=== PATIENT | male | born 1950 | race Caucasian/White ===

== ENCOUNTER 2021-10-31 09:24 | Emergency (ER) | payer OTHER ==
[2021-10-31 10:56] LABS: Hemoglobin 10.7 g/dL (13.5-17.5); Mean Corpuscular HGB CONC 31.2 g/dL (32.0-36.0); Mean Corpuscular Hemoglobin 27.1 pg (27.0-33.0); Mean Corpuscular Volume 86.8 fl (81.2-95.1); Mean Platelet Volume 10.5 fl (7.4-10.4); Platelet Count 921 10x3/uL (150-450); RBC Distribution Width 15.3 % (11.5-14.5); Red Blood Cell (RBC) Count 3.95 10x6/uL (4.32-5.72); White Blood Cell (WBC) Count 6.8 10x3/uL (3.5-10.5)
[2021-10-31 11:03] LABS: MDiff Complete? YES
[2021-10-31 11:21] LABS: Band 1 % (5-11); Lymphocytes 77 % (21-51); Monocytes 5 % (0-10); Neutrophil 6 % (42-75); Nucleated RBC 8 % (0); Reactive Lymphocytes 9 % (0-10)
[2021-10-31 11:24] LABS: ALT (SGPT) 20 U/L (8-55); AST (SGOT) 18 U/L (5-34); Albumin 3.9 g/dL (3.4-4.8); Alkaline Phosphatase 49 U/L (40-110); Anion Gap 14 mmol/L (10-20); BUN (Urea Nitrogen) 13 mg/dL (8.4-25.7); Bilirubin, Total 0.7 mg/dL (0.2-1.2); CK (CPK) 35 U/L (30-200); Calc. Creatinine Clearance 0 mL/min (70-130); Calcium 9.4 mg/dL (7.8-10.44); Carbon Dioxide 24 mmol/L (23-31); Chloride 101 mmol/L (98-107); Estimated GFR 82; Globulin 2.8 g/dL (2.4-3.5); Glucose 93 mg/dL (80-115); Lipase 34 U/L (8-78); Potassium 3.9 mmol/L (3.5-5.1); Protein, Total 6.7 g/dL (5.8-8.1); Sodium 135 mmol/L (136-145)
[2021-10-31 11:33] LABS: Giant Platelets SLIGHT; Large Platelets SLIGHT; Platelet Morphology Comment Appears Increased
[2021-10-31 11:36] LABS: Reflex for Review?? YES
[2021-10-31 11:42] LABS: Differential Comment Blast-Like Cell(s); Hypochromia SLIGHT = 6-15 cells (100X) (0-5/hpf); Polychromasia SLIGHT = 2-3 cells (100X) (0-2/hpf)
[2021-10-31 11:52] LABS: SARS-CoV-2 NAA Rapid Test Not Detected (NotDetected)
[2021-10-31] MEDS ORDERED: Magnesium 2 GM/50 ML BAG (IN WATER) ONE (11:53)
[2021-10-31] MEDS ORDERED: Dexamethasone 4 mg/ml Vial ONE (11:53)
[2021-10-31] MEDS ORDERED: Albuterol Sulfate 2.5 mg/3 ml Neb ONE (12:32)
[2021-10-31] MEDS ORDERED: Iopamidol 370 76% 100 ML VIAL ONE (13:15)
== END 2021-10-31 14:39 | disposition home or self-care (01) ==
LOC: CSHERS 09:24
DX: J18.9 Pneumonia, unspecified organism (principal); I25.10 Atherosclerotic heart disease of native coronary artery without angina pectoris; E03.9 Hypothyroidism, unspecified; K21.9 Gastro-esophageal reflux disease without esophagitis; I10 Essential (primary) hypertension; F17.210 Nicotine dependence, cigarettes, uncomplicated; Z20.822 Contact with and (suspected) exposure to COVID-19
CPT/HCPCS: 36415; 71275; 80053; 82550; 83690; 83880; 84484; 85025; 85060; 93005; 94644; 96361; 96365; 96375; J1100; J3475; J7611; J7620; Q9967; U0002